=== PATIENT | male | born 1955 | race Caucasian/White ===

== ENCOUNTER 2024-03-25 11:48 | Emergency (ER) | payer OTHER ==
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
[2024-03-25 14:33] VITALS: BP 159/88; TEMP 97.9; O2SAT 97
--- OUTSIDE RECORDS SUMMARY | 2024-03-28 08:02 | XMS REPORT | Continuity of Care Document ---
Author Name Unknown Address [address] [facility] [place] [address] [facility] Address [address] [facility] [address] [place] [address] Care Team Providers Care Swage Tender Name Role Phone PCP, PATIENT DOES NOT HAVE A Primary Care Physic geoff Unavailable Aneta Degroot Attending Clinician Unavailable Campaigns, Generic Provider Attending Clinician Unavailable ARACELI WAGONER Attending Clinician Unavailable Araceli Owusu Attending Clinician [phone] Unknown, Attending Attending Clinician Unavailab le Payers Payer Name Policy Type Policy Number Effective Date Expirati on Date Source Problems Condition Name Condition Details Condition Category Status Onset Date Resolution Date Last Treatment Date Treating Clinician Comments Source [id number] Acquired hypothyroi dism Problem [facility] [id number] Hyperkalem ia Problem [facility] Reduced libido Decreased libido Problem [facility] Seasonal allergy Seasonal allergies Problem [facility] [id number] Essential hypertensi on Problem [facility] [id number] Obesity (BMI 35.0-39.9 without comorbidit y) Problem [facility] Allergies, Adverse Reactions, Alerts Allergy Name Allergy Type Status Severity Reaction(s) Onset Date Inactive Date Treating Clinician Comments Source lisinopr il lisinopr il Active cough [facility] NO KNOWN ALLERGIE S Drug Class Active [facility] Social History Social Habit Start Date Stop Date Quantity Comments Source History of Tobacco Use [facility] Tobacco use and exposure 2023-11-07 00:00:00 2023-11-07 00:00:00 Smokeless tobacco non-user [facility] History of Social function 2023-11-07 00:00:00 2023-11-07 00:00:00 [facility] Sex assigned at 1955 00:00:00 1955 00:00:00 [facility] Smoking Status Start Date Stop Date Source Never smoked tobacco [facility] Medications Ordered Medication Name Filled Medication Name Start Date Stop Date Current Medication? Ordering Clinician Indication Dosage Frequency Signature (SIG) Comments Components Source bimatoprost (LUMIGAN) 0.01 % ophthalmic drops 11-06 12:15: 44 Yes at bedtime. [facility] timoloL 0.25 % ophthalmic solution 11-06 12:15: 44 Yes 1[drp] Take 1-2 Drops in the morning and 1-2 Drops in the evening. [facility] azithromyci n 250 mg tablet 11-06 00:00: 00 Yes [id number] Z pack as directed. [facility] albuterol 90 mcg/actuati on inhaler 11-06 00:00: 00 11-17 04:59 :00 No [id number] 2{puff} Inhale 2 Puffs every 6 (six) hours as needed for Wheezing for up to 10 days. [facility] benzonatate 200 mg capsule 11-06 00:00: 00 11-17 04:59 :00 No [id number] 200mg Take 1 capsule by mouth 3 (three) times daily as needed for Cough for up to 10 days. [facility] nirmatrelvi r-ritonavir (PAXLOVID) 300 mg (150 mg x 2)-100 mg tablet 11-06 00:00: 00 11-12 04:59 :00 No [id number] 3{tbl} Take 3 tablets by mouth in the morning and 3 tablets in the evening. Do all this for 5 days. [facility] losartan 25 mg tablet 10-26 00:00: 00 Yes 25mg Take 1 tablet by mouth in the morning. [facility] levothyroxi ne 50 mcg tablet 10-14 00:00: 00 Yes TAKE 1 TABLET BY MOUTH EVERY DAY IN THE MORNING ON EMPTY STOMACH FOR 90 DAYS [facility] Vitamin D3 Vitamin D3 No 1{ table t} QD Vitamin D3 Saw Gorham 500 MG Saw [place]ham 500 MG No QD Saw [place] 500 MG Milk Thistle 150 MG Milk Thistle 150 MG No Milk Thistle 150 MG Fish Oil 500 MG Fish Oil 500 MG No 1{capsu le} QD Fish Oil 500 MG Turmeric Curcumin 500 MG Turmeric Curcumin 500 MG No QD Turmeric Curcumin 500 MG Immunizations Ordered Immunization Name Filled Immunization Name Date Status Comments Source Shingrix Shingrix Unknown Completed [facility] Boostrix (Tdap) Boostrix (Tdap) Unknown Completed [facility] Pneumovax (PPSV23) Pneumovax (PPSV23) Unknown Completed [facility] Prevnar 13 (PCV13) Prevnar 13 (PCV13) Unknown Completed [facility] Moderna COVID-19 Vaccine Moderna COVID-19 Vaccine Unknown Completed [facility] Shingrix Shingrix Unknown Completed [facility] Boostrix (Tdap) Boostrix (Tdap) Unknown Completed [facility] Pneumovax (PPSV23) Pneumovax (PPSV23) Unknown Completed [facility] Prevnar 13 (PCV13) Prevnar 13 (PCV13) Unknown Completed [facility] Moderna COVID-19 Vaccine Moderna COVID-19 Vaccine Unknown Completed [facility] Shingrix Shingrix Unknown Completed [facility] Boostrix (Tdap) Boostrix (Tdap) Unknown Completed [facility] Pneumovax (PPSV23) Pneumovax (PPSV23) Unknown Completed [facility] Prevnar 13 (PCV13) Prevnar 13 (PCV13) Unknown Completed [facility] Moderna COVID-19 Vaccine Moderna COVID-19 Vaccine Unknown Completed [facility] Shingrix Shingrix Unknown Completed [facility] Boostrix (Tdap) Boostrix (Tdap) Unknown Completed [facility] Pneumovax (PPSV23) Pneumovax (PPSV23) Unknown Completed [facility] Prevnar 13 (PCV13) Prevnar 13 (PCV13) Unknown Completed [facility] Moderna COVID-19 Vaccine Moderna COVID-19 Vaccine Unknown Completed [facility] Shingrix Shingrix Unknown Completed [facility] Boostrix (Tdap) Boostrix (Tdap) Unknown Completed [facility] Pneumovax (PPSV23) Pneumovax (PPSV23) Unknown Completed [facility] Prevnar 13 (PCV13) Prevnar 13 (PCV13) Unknown Completed [facility] Moderna COVID-19 Vaccine Moderna COVID-19 Vaccine Unknown Completed [facility] Shingrix Shingrix Unknown Completed [facility] Boostrix (Tdap) Boostrix (Tdap) Unknown Completed [facility] Pneumovax (PPSV23) Pneumovax (PPSV23) Unknown Completed [facility] Prevnar 13 (PCV13) Prevnar 13 (PCV13) Unknown Completed [facility] Moderna COVID-19 Vaccine Moderna COVID-19 Vaccine Unknown Completed [facility] SARS-COV-2 COVID-19 MODERNA 0.25ML BOOSTER VACCINE Unknown Completed [facility] SARS-COV-2 COVID-19 MODERNA 0.25ML BOOSTER VACCINE Unknown Completed [facility] SARS-COV-2 COVID-19 MODERNA 0.25ML BOOSTER VACCINE Unknown Completed [facility] Vital Signs Vital Name Observation Time Observation Value Harmony oliveira Systolic blood pressure 2023-11-07 17:15:00 143 mm[Hg] [facility] Diastolic blood pressure 2023-11-07 17:15:00 71 mm[Hg] [facility] Heart rate 2023-11-07 17:15:00 95 /[facility] 2023-11-07 17:15:00 39.06 Stefany [facility] Body weight 2023-11-07 17:15:[address] [facility] temperature 2023-09-22 08:40:00 97.3 [degF] Com [facility] bmi 2023-09-22 08:40:00 37.19 kg/m2 Comm on [facility] oximetry 2023-09-22 08:40:00 96 % Commo n [facility] respiratory rate 2023-09-22 08:40:00 15 /min [facility] blood pressure systolic 2023-09-22 08:40:00 116 mm[Hg] [facility] blood pressure diastolic 2023-09-22 08:40:00 52 mm[Hg] [facility] height 2023-09-22 08:40:00 68 [in_i] Commo n [facility] weight 2023-09-22 08:40:00 244.6 [lb_av] Co mmon [facility] temperature 2023-09-22 08:40:00 97.3 [degF] Com mon [facility] bmi 2023-09-22 08:40:00 37.19 kg/m2 Comm on [facility] oximetry 2023-09-22 08:40:00 96 % Commo n [facility] respiratory rate 2023-09-22 08:40:00 15 /min [facility] blood pressure systolic 2023-09-22 08:40:00 116 mm[Hg] [facility] blood pressure diastolic 2023-09-22 08:40:00 52 mm[Hg] [facility] height 2023-09-22 08:40:00 68 [in_i] Commo n [facility] weight 2023-09-22 08:40:00 244.6 [lb_av] Co [facility] height 2023-03-23 08:20:00 68 [in_i] Commo n [facility] weight 2023-03-23 08:20:00 250.0 [lb_av] Co [facility] temperature 2023-03-23 08:20:00 98.2 [degF] Com [facility] bmi 2023-03-23 08:20:00 38.01 kg/m2 Comm on [facility] oximetry 2023-03-23 08:20:00 95 % Commo n [facility] respiratory rate 2023-03-23 08:20:00 16 /min Common [facility] blood pressure systolic 2023-03-23 08:20:00 135 mm[Hg] [facility] blood pressure diastolic 2023-03-23 08:20:00 73 mm[Hg] [facility] height 2022-11-18 13:00:00 68 [in_i] Commo n [facility] weight 2022-11-18 13:00:00 249.4 [lb_av] Co [facility] temperature 2022-11-18 13:00:00 97.9 [degF] Com [facility] bmi 2022-11-18 13:00:00 37.92 kg/m2 Comm on [facility] oximetry 2022-11-18 13:00:00 95 % Commo n [facility] respiratory rate 2022-11-18 13:00:00 16 /min [facility] blood pressure systolic 2022-11-18 13:00:00 138 mm[Hg] [facility] blood pressure diastolic 2022-11-18 13:00:00 62 mm[Hg] [facility] height 2022-10-07 08:00:00 68 [in_i] Commo n [facility] weight 2022-10-07 08:00:00 243.0 [lb_av] Co mmon [facility] temperature 2022-10-07 08:00:00 97.9 [degF] Com mon [facility] bmi 2022-10-07 08:00:00 36.94 kg/m2 Comm on [facility] oximetry 2022-10-07 08:00:00 95 % Commo n [facility] respiratory rate 2022-10-07 08:00:00 16 /min [facility] blood pressure systolic 2022-10-07 08:00:00 131 mm[Hg] [facility] blood pressure diastolic 2022-10-07 08:00:00 69 mm[Hg] [facility] Procedures Procedure Date / Time Performed Performing Clinicia n Source XR CHEST 2 VW 2023-11-07 17:42:36 Araceli Wagoner [facility] POCT SARS-COV-2 ANTIGEN (BINAX NOW) 2023-11-07 17:26:00 Lakisha Woods [facility] Encounters Start Date/Time End Date/Time Encounter Type Admission Type Attending Clinicians Care Facility Care Department Encounter ID Source 2023-10-30 15:19:00 Outpatient GoodingAneta xiong [facility] [id number] [facility] 2023-09-22 07:18:00 Outpatient ZaneAneta [facility] [id number] [facility] 2023-09-21 14:03:00 Outpatient ZaneAneta [facility] [id number] [facility] 2023-03-19 15:03:01 Outpatient Aneta Degroot [facility] [id number] [facility] 2022-11-10 10:29:01 Outpatient Aneta Degroot [facility] [id number] [facility] 2022-10-07 08:04:02 Outpatient Aneta Degroot [facility] [id number] [facility] 2024-03-25 00:00:00 2024-03-25 00:00:00 (TEL) STISHA [facility] [id number] [facility] 2023-11-18 00:00:00 2023-11-18 10:57:00 Letter (Out) Campaigns, Generic Provider [facility] 1..840.114 [id number] [facility] 2023-11-07 12:32:39 2023-11-07 23:59:00 Outpatient R WAGONER NICOLEJENARO [facility] [id number] [facility] 2023-11-07 12:32:39 2023-11-07 23:59:00 Hospital Encounter Nicole Wagonerjenaro [facility] [id number] [facility] 2023-11-07 12:20:00 2023-11-07 12:54:07 Urgent Care Nicole Wagonerradhalaura Unknown, Attending [facility] 1..840.114 [id number] [facility] 2023-10-20 00:00:00 2023-10-20 00:00:00 (TEL) STLMLC STLMLC [id number] [facility] 2023-09-22 00:00:00 2023-09-22 00:00:00 OFFICE VISIT ESTAB PT LEVEL 3 STLMLC STLMLC [id number] [facility] 2023-07-20 00:00:00 2023-07-20 00:00:00 (TEL) STLMLC STLMLC [id number] [facility] 2023-03-23 00:00:00 2023-03-23 00:00:00 OFFICE VISIT ESTAB PT LEVEL 3 STLMLC STLMLC [id number] [facility] 2022-12-31 00:00:00 2022-12-31 00:00:00 (TEL) STLMLC STLMLC [id number] [facility] 2022-11-18 00:00:00 2022-11-18 00:00:00 OFFICE VISIT ESTAB PT LEVEL 3 STLMLC STLMLC [id number] [facility] 2022-10-07 00:00:00 2022-10-07 00:00:00 OFFICE VISIT ESTAB PT LEVEL 4 STLMLC STLMLC [id number] [facility] Results Test Description Test Time Test Comments Results Result Co mments Source POCT SARS-COV-2 ANTIGEN (BINAX NOW)2023-11-07 17:26:00* Test Item Value Reference Range Interpretation Comme nts POCT SARS-COV-2 ANTIGEN (jose david t code = 12571-3) Positive Not Detected, See Comment A On board controls acceptable with C Line (test code = 3574) Yes Lab Interpretation (test cod e = 59468-7) Abnormal [facility] REFLEX TO FREE [id number] 00:00:00* Test Item Value Reference Range Interpretation Comme nts TSH REFLEX TO FREE T4 (test code = 87997-5) 3.020 UIU/ML See_Comment [Automated messa ge] The system which generated this result transmitted reference range: 0.400-4.100 UIU/ML. The reference range was not used to interpret this result as normal/abnormal. TSH REFLEX TO FREE [id number] 00:00:00* Test Item Value Reference Range Interpretation Comme nts TSH REFLEX TO FREE T4 (test code = 48188-6) TEST NOT PERFORMED UIU/ML See_Comment [Automated message] The system which generated this result transmitted reference range: 0.400-4.100 UIU/ML. The reference range was not used to interpret this result as normal/abnormal.
== END 2024-03-25 13:54 | disposition home or self-care (01) ==
LOC: ER 11:48
DX: R10.813 Right lower quadrant abdominal tenderness (principal); V49.49XA Driver injured in collision with other motor vehicles in traffic accident, initial encounter; I10 Essential (primary) hypertension; E03.9 Hypothyroidism, unspecified
CPT/HCPCS: 70450; 71250; 72125; 74176; 99283